=== PATIENT | male | born 1970 ===

== ENCOUNTER 2020-11-06 21:17 | Emergency (ER) | payer OTHER ==
[~2020-11-06] VITALS: Ht 170.2 cm; Wt 68.0 kg
--- NOTE | 2020-11-06 22:30 | NUR ---
INITIAL PT CONTACT. PT PRESENTS TO ED C/O SUICIDAL IDEATION X MULTIPLE DAYS. PT STATES "I WANT TO HURT MYSELF AND I WANT TO HURT OTHERS. I WANT TO TAKE A KNIFE AND CUT MYSELF. I WANT TO HURT PEOPLE AT THE PARK." PT DENIES ACCESS TO ANY WEAPONS, STATES THEY WERE THROWN AWAY. PT CHANGED INTO GOWN, ALL BELONGINGS SECURED AND PLACED IN BAGS AND PLACED IN APPROPRIATE LOCKER. ROOM SECURED AND SAFETY FIORE DOWN. SITTER WITHIN LINE OF SIGHT. PT PROVIDED WATER AND WARM BLANKETS. DENIES ANY ADDITIONAL NEEDS AT THIS TIME.
[2020-11-06 23:05] LABS: BASOPHILS % (AUTO) 1 % (0-1); EOSINOPHILS % (AUTO) 1 % (1-7); LYMPHOCYTES % (AUTO) 22 % (22-44); MEAN CORPUSCULAR HEMOGLOBIN 29.7 pg (27.5-34.5); MEAN CORPUSCULAR HGB CONC 35.1 g/dL (33.2-36.2); MEAN PLATELET VOLUME 8.3 fL (7.4-10.4); MONOCYTES % (AUTO) 15 % (2-9); NEUTROPHILS % (AUTO) 61 % (42-75); PLATELET COUNT 232 x10^3/uL (130-400); RED BLOOD COUNT 4.72 x10^6/uL (4.38-5.82); RED CELL DISTRIBUTION WIDTH 13.5 % (9.4-14.8)
[2020-11-06 23:25] LABS: ALBUMIN 3.9 g/dL (3.4-5.0); ANION GAP 7 mmol/L (5-15); CALCIUM 8.7 mg/dL (8.5-10.1); CHLORIDE 104 mmol/L (98-107)
[2020-11-06 23:38] LABS: ALANINE AMINOTRANSFERASE 90 U/L (12-78); ALKALINE PHOSPHATASE 118 U/L (45-117); BILIRUBIN,TOTAL 2.7 mg/dL (0.2-1.0); CREATININE 1.22 mg/dL (0.7-1.3)
[2020-11-06 23:42] LABS: SALICYLATE LEVEL < 1.7 mg/dL (2.8-20.0)
--- NOTE | 2020-11-06 23:53 | NUR ---
SPOKE WITH TELEPSYCH PROVIDER. TELEPSYCH PROVIDER RECOMMENDS PT BE DISCHARGED. 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 PT TO BE DISCHARGED FROM DEPARTMENT.
--- NOTE | 2020-11-07 00:17 | NUR ---
Patient given discharge instructions and they have confirmed that they understand the instructions. Patient ambulatory with steady gait. NAD, all questions answered appropriately, denies additional needs at this time. No personal belongings left in room after discharge. Pt provided taxi voucher to half-way upon d/c.
[2020-11-07 00:18] VITALS: BP 134/78
== END 2020-11-07 00:20 | disposition home or self-care (01) ==
LOC: ED 21:22
DX: F43.24 Adjustment disorder with disturbance of conduct (principal); R94.5 Abnormal results of liver function studies; Z72.9 Problem related to lifestyle, unspecified; F20.9 Schizophrenia, unspecified; F17.200 Nicotine dependence, unspecified, uncomplicated
CPT/HCPCS: 36415; 80053; 80299; 80320; 80329; 85025; 99283; G0480